=== PATIENT | male | born 2000 ===

== ENCOUNTER 2021-10-17 10:04 | Emergency (ER) | payer SELFPAY ==
[2021-10-17 10:38] VITALS: BP 106/58
== END 2021-10-19 10:13 | disposition left against medical advice (07) ==
LOC: ED 10:04
DX: M54.9 Dorsalgia, unspecified (principal); Z53.21 Procedure and treatment not carried out due to patient leaving prior to being seen by health care provider; V89.2XXA Person injured in unspecified motor-vehicle accident, traffic, initial encounter; Y93.89 Activity, other specified; Y92.89 Other specified places as the place of occurrence of the external cause; Y99.8 Other external cause status